=== PATIENT | male | born 1950 | race Caucasian/White ===

== ENCOUNTER 2020-11-17 14:40 | Emergency (ER) | payer MEDICARE, OTHER ==
--- NOTE | 2020-11-17 14:55 | EDM.PDOC ---
ED HPI GENERAL MEDICAL PROBLEM - General Chief Complaint: Possible Sepsis Stated Complaint: MEDICAL [facility]IA [facility] Time Seen by Provider: 11/17/20 14:45 Source of Information: Reports: Patient History Limitations: Reports: Altered Mental Status - History of Present Illness INITIAL COMMENTS - FREE TEXT/NARRATIVE: Kwasi presents today via EMS for severe let groin and hip pain. He is not alert to time, day or place. Recent left hip replacement 09/15/2020 at [facility]. Per EMS patient called for increased and severe left hip/groin pain that started last night. Patient answers yes and no questions, not alert to day, time place or situation. Hypotensive, tachycardic. Patient had zofran 4mg IV, ketamine 30mg IV and normal saline 1500mg IV. Upon presentation to our emergency room, HR 120s, BP 90/60, confused to day, time place. - Related Data Allergies Allergy/AdvReac Type Severity Reaction Status Date / Time No Known Allergies Allergy Verified 11/17/20 14:49 Home Meds: Home Meds Aspirin 81 mg PO DAILY 11/17/20 [History] Calcium Carb/Vit D3/Minerals [Calcium 600+D Plus Minerals] 1 tab PO BID 11/17/20 [History] Cholecalciferol (Vitamin D3) [Vitamin D3] 1 cap PO DAILY 11/17/20 [History] Multivitamin 1 tab PO DAILY 11/17/20 [History] Naproxen 500 mg PO DAILY 11/17/20 [History] Omeprazole 20 mg PO DAILY 11/17/20 [History] atorvaSTATin [Lipitor] 40 mg PO BEDTIME 11/17/20 [History] Past Medical History - Past Surgical History Other Musculoskeletal Surgeries/Procedures:: Left COLT 09/15/2020 [place] ED ROS GENERAL - Review of Systems Review Of Systems: See Below Constitutional: Reports: ROS unobtainable, Other (change in mental status, confusion, not alert, not oriented) Respiratory: Reports: Other (tachypnea) Skin: Reports: Other (Pain to left hip/groin) Neurological: Reports: Confusion, Difficulty Walking, Weakness - Physical Exam Exam: See Below Exam Limited By: Altered Mental Status General Appearance: Anxious, Severe Distress Eye Exam: Bilateral Eye: PERRL Ears: Normal External Exam, Normal Canal, Hearing Grossly Normal, Normal TMs Nose: Normal Inspection, Normal Mucosa, No Blood Throat/Mouth: Normal Inspection, Normal Lips, Normal Gums, Normal Voice, No Airway Compromise Head Exam: Atraumatic, Normocephalic Neck: Normal Inspection, Supple, Full Range of Motion. No: Lymphadenopathy (R), Lymphadenopathy (L) Respiratory/Chest: Lungs Clear, Normal Breath Sounds, No Accessory Muscle Use, Chest Non-Tender, Other (tachypnea) Cardiovascular: No Edema, No Gallop, No Murmur, No Rub, Tachycardia GI/Abdominal: Normal Bowel Sounds, Soft, Non-Tender, No Distention, No Mass. No: Guarding, Rigid, Rebound, Tender (Male) Exam: Normal Inspection, Scrotum Tenderness (L), Testicular Tenderness (L), Other (US completed, no torsion noted, severe pain referred from left hip). No: Rash, Scrotal Swelling, Testicular Mass Neuro Exam (Abbreviated): Confused Extremities: No Pedal Edema, Normal Capillary Refill, Other (decreased ROM to left leg, left hip pain) Psychiatric: Anxious Skin Exam: Dry, Intact, Erythema (significant area of erythema to left hip near healed incision extending to left buttock. Area marked with indelible marker) #1 Interpretation EKG Date: 11/17/20 Time: 16:43 Course - Orders/Labs/Meds Orders: Active Orders 24 hr Category Date Time Status EKG Documentation Completion [RC] ASDIRECTED Care 11/17/20 15:04 Active Abdomen Pelvis w wo Cont [CT] Stat Exams 11/17/20 15:02 Taken Chest 1V Frontal [CR] Stat Exams 11/17/20 15:02 Taken Hip wo Cont Lt [MR] Stat Exams 11/17/20 15:02 Ordered Scrotal Duplex Ltd [US] Stat Exams 11/17/20 16:05 Taken Scrotum and Contents [US] Stat Exams 11/17/20 15:08 Taken CULTURE BLOOD [BC] Stat Lab 11/17/20 15:05 Received CULTURE BLOOD [BC] Stat Lab 11/17/20 15:15 Received CULTURE URINE [RM] Stat Lab 11/17/20 16:27 Received Norepinephrine [Levophed] 4 mg Med 11/17/20 15:00 Active Dextrose 5% in Water 246 ml IV TITRATE Sodium Chloride 0.9% [Normal Saline] 80 ml Med 11/17/20 15:45 Active IV ASDIRECTED Vancomycin 1.5 gm Med 11/17/20 15:20 Active Sodium Chloride 0.9% [Normal Saline] 250 ml IV ONETIME Septic Shock Onset Time [OM.PC] Stat Oth 11/17/20 14:57 Ordered EKG 12 Lead [EK] Routine Ther 11/17/20 15:02 Ordered Medication Orders Norepinephrine Bitartrate 4 mg (/ Dextrose/Water) 250 mls @ 7.5 mls/hr IV TITRATE YANE; Protocol Last Admin: 11/17/20 15:44 Dose: 2 mcg/min, 7.5 mls/hr Documented by: JOHNNY Vancomycin HCl 1.5 gm/ Sodium (Chloride) 250 mls @ 150 mls/hr IV ONETIME ONE Stop: 11/17/20 16:59 Last Admin: 11/17/20 16:13 Dose: 150 mls/hr Documented by: JOHNNY Sodium Chloride (Normal Saline) 80 mls @ 3.5 mls/sec IV ASDIRECTED AYNE Last Admin: 11/17/20 16:27 Dose: 3.2 mls/sec Documented by: JEFF Labs: Laboratory Tests 11/17/20 11/17/20 11/17/20 Range/Units 15:05 15:05 15:05 WBC 16.0 H (4.5-11.0) K/uL RBC 4.49 (4.30-5.90) M/uL Hgb 12.5 (12.0-15.0) g/dL Hct 38.6 L (40.0-54.0) % MCV 86 (80-98) fL MCH 28 (27-31) pg MCHC 32 (32-36) % Plt Count 220 (150-400) K/uL Neut % (Auto) 88.3 H (36-66) % Lymph % (Auto) 1.9 L (24-44) % [place] % (Auto) 9.6 H (2-6) % Eos % (Auto) 0.1 L (2-4) % Baso % (Auto) 0.1 (0-1) % PT (9.5-12.0) sec INR (0.80-1.20) APTT (27.0-36.0) sec Puncture Site ABG pH (7.350-7.450) ABG pCO2 (35.0-42.0) mmHg ABG pO2 (75.0-100.0) mmHg ABG HCO3 (22.0-26.0) mmol/L ABG Total CO2 (23.0-27.0) mmol/L ABG O2 Saturation (95.0-98.0) % ABG O2 Content (15.0-23.0) %vol ABG Base Excess mm/L ABG Hemoglobin (13.5-18.0) g/dL ABG Oxyhemoglobin % ABG Carboxyhemoglobin (0.0-1.6) % ABG Methemoglobin % Korey Test O2 Delivery Device Sodium 143 (140-148) mmol/L Potassium 3.9 (3.6-5.2) mmol/L Chloride 106 (100-108) mmol/L Carbon Dioxide 21 (21-32) mmol/L Anion Gap 16.1 H (5.0-14.0) mmol/L BUN 29 H (7-18) mg/dL Creatinine 1.3 (0.8-1.3) mg/dL Est Cr Clr Drug Dosing TNP Estimated GFR (MDRD) 55 L (>60) Glucose 107 H (74-106) mg/dL Lactic Acid (0.4-2.0) mmol/L Calcium 8.2 L (8.5-10.1) mg/dL Total Bilirubin 0.9 (0.2-1.0) mg/dL AST 19 (15-37) U/L ALT 27 (12-78) U/L Alkaline Phosphatase 97 (46-116) U/L C-Reactive Protein 1.08 H (0.0-0.3) mg/dL Total Protein 5.6 L (6.4-8.2) g/dL Albumin 3.5 (3.4-5.0) g/dL Globulin 2.1 L (2.3-3.5) g/dL Albumin/Globulin Ratio 1.7 (1.2-2.2) Procalcitonin ng/mL Urine Color (YELLOW) Urine Appearance (CLEAR) Urine pH (5.0-8.0) Ur Specific [place] (1.008-1.030) Urine Protein (NEGATIVE) mg/dL Urine Glucose (UA) (NEGATIVE) mg/dL Urine Ketones (NEGATIVE) mg/dL Urine Occult Blood (NEGATIVE) Urine Nitrite (NEGATIVE) Urine Bilirubin (NEGATIVE) Urine Urobilinogen (0.2-1.0) EU/dL Ur Leukocyte Esterase (NEGATIVE) Urine RBC (0-5) Urine WBC (0-5) Ur Epithelial Cells Amorphous Sediment Urine Bacteria Urine Mucus SARS CoV-2 RNA Rapid AYLA 11/17/20 11/17/20 11/17/20 Range/Units 15:05 15:05 15:20 WBC (4.5-11.0) K/uL RBC (4.30-5.90) M/uL Hgb (12.0-15.0) g/dL Hct (40.0-54.0) % MCV (80-98) fL MCH (27-31) pg MCHC (32-36) % Plt Count (150-400) K/uL Neut % (Auto) (36-66) % Lymph % (Auto) (24-44) % [place] % (Auto) (2-6) % Eos % (Auto) (2-4) % Baso % (Auto) (0-1) % PT 11.1 (9.5-12.0) sec INR 1.02 (0.80-1.20) APTT 25.0 L (27.0-36.0) sec Puncture Site Lt radial ABG pH 7.700 H* (7.350-7.450) ABG pCO2 14.8 L* (35.0-42.0) mmHg ABG pO2 77.0 (75.0-100.0) mmHg ABG HCO3 18.8 L (22.0-26.0) mmol/L ABG Total CO2 16.0 L (23.0-27.0) mmol/L ABG O2 Saturation 98.3 H (95.0-98.0) % ABG O2 Content 17.0 (15.0-23.0) %vol ABG Base Excess 0.7 mm/L ABG Hemoglobin 12.6 L (13.5-18.0) g/dL ABG Oxyhemoglobin 95.8 % ABG Carboxyhemoglobin 1.4 (0.0-1.6) % ABG Methemoglobin 1.1 % Korey Test Pass O2 Delivery Device Room air Sodium (140-148) mmol/L Potassium (3.6-5.2) mmol/L Chloride (100-108) mmol/L Carbon Dioxide (21-32) mmol/L Anion Gap (5.0-14.0) mmol/L BUN (7-18) mg/dL Creatinine (0.8-1.3) mg/dL Est Cr Clr Drug Dosing Estimated GFR (MDRD) (>60) Glucose (74-106) mg/dL Lactic Acid (0.4-2.0) mmol/L Calcium (8.5-10.1) mg/dL Total Bilirubin (0.2-1.0) mg/dL AST (15-37) U/L ALT (12-78) U/L Alkaline Phosphatase (46-116) U/L C-Reactive Protein (0.0-0.3) mg/dL Total Protein (6.4-8.2) g/dL Albumin (3.4-5.0) g/dL Globulin (2.3-3.5) g/dL Albumin/Globulin Ratio (1.2-2.2) Procalcitonin 3.28 H* ng/mL Urine Color (YELLOW) Urine Appearance (CLEAR) Urine pH (5.0-8.0) Ur Specific [place] (1.008-1.030) Urine Protein (NEGATIVE) mg/dL Urine Glucose (UA) (NEGATIVE) mg/dL Urine Ketones (NEGATIVE) mg/dL Urine Occult Blood (NEGATIVE) Urine Nitrite (NEGATIVE) Urine Bilirubin (NEGATIVE) Urine Urobilinogen (0.2-1.0) EU/dL Ur Leukocyte Esterase (NEGATIVE) Urine RBC (0-5) Urine WBC (0-5) Ur Epithelial Cells Amorphous Sediment Urine Bacteria Urine Mucus SARS CoV-2 RNA Rapid AYLA 11/17/20 11/17/20 11/17/20 Range/Units 15:30 15:30 15:42 WBC (4.5-11.0) K/uL RBC (4.30-5.90) M/uL Hgb (12.0-15.0) g/dL Hct (40.0-54.0) % MCV (80-98) fL MCH (27-31) pg MCHC (32-36) % Plt Count (150-400) K/uL Neut % (Auto) (36-66) % Lymph % (Auto) (24-44) % [place] % (Auto) (2-6) % Eos % (Auto) (2-4) % Baso % (Auto) (0-1) % PT (9.5-12.0) sec INR (0.80-1.20) APTT (27.0-36.0) sec Puncture Site ABG pH (7.350-7.450) ABG pCO2 (35.0-42.0) mmHg ABG pO2 (75.0-100.0) mmHg ABG HCO3 (22.0-26.0) mmol/L ABG Total CO2 (23.0-27.0) mmol/L ABG O2 Saturation (95.0-98.0) % ABG O2 Content (15.0-23.0) %vol ABG Base Excess mm/L ABG Hemoglobin (13.5-18.0) g/dL ABG Oxyhemoglobin % ABG Carboxyhemoglobin (0.0-1.6) % ABG Methemoglobin % Korey Test O2 Delivery Device Sodium (140-148) mmol/L Potassium (3.6-5.2) mmol/L Chloride (100-108) mmol/L Carbon Dioxide (21-32) mmol/L Anion Gap (5.0-14.0) mmol/L BUN (7-18) mg/dL Creatinine (0.8-1.3) mg/dL Est Cr Clr Drug Dosing Estimated GFR (MDRD) (>60) Glucose (74-106) mg/dL Lactic Acid 4.6 H (0.4-2.0) mmol/L Calcium (8.5-10.1) mg/dL Total Bilirubin (0.2-1.0) mg/dL AST (15-37) U/L ALT (12-78) U/L Alkaline Phosphatase (46-116) U/L C-Reactive Protein (0.0-0.3) mg/dL Total Protein (6.4-8.2) g/dL Albumin (3.4-5.0) g/dL Globulin (2.3-3.5) g/dL Albumin/Globulin Ratio (1.2-2.2) Procalcitonin ng/mL Urine Color Yellow (YELLOW) Urine Appearance Slightly cloudy A (CLEAR) Urine pH >= 9.0 H (5.0-8.0) Ur Specific [place] 1.015 (1.008-1.030) Urine Protein 30 H (NEGATIVE) mg/dL Urine Glucose (UA) Negative (NEGATIVE) mg/dL Urine Ketones Trace H (NEGATIVE) mg/dL Urine Occult Blood Negative (NEGATIVE) Urine Nitrite Negative (NEGATIVE) Urine Bilirubin Negative (NEGATIVE) Urine Urobilinogen 1.0 (0.2-1.0) EU/dL Ur Leukocyte Esterase Negative (NEGATIVE) Urine RBC 0-5 (0-5) Urine WBC 0-5 (0-5) Ur Epithelial Cells Moderate Amorphous Sediment Few Urine Bacteria Not seen Urine Mucus Many SARS CoV-2 RNA Rapid AYLA Negative Procalcitonin 3.28 Lactic acid 4.6 Patient septic, discussed are and transfer to [facility]. Air transport via helicopter due to change in mental status, sepsis, leukocytosis, hypotension, tachycardia, Procalcitonin 3.28, lactic acid 4.6. Case reviewed with Dr. Joyce and patient , they are in agreement with plan. Dr. Mensah [facility] accepts patient for transfer to ICU. CT to be completed and images pushed to [facility]. Meds: Medications Generic Name Dose Route Start Last Admin Trade Name Freq PRN Reason Stop Dose Admin Norepinephrine Bitartrate 4 mg 250 mls @ 7.5 mls/hr 11/17/20 15:00 11/17/20 15:44 / Dextrose/Water IV 2 mcg/min TITRATE YANE 7.5 mls/hr Administration Protocol 2 MCG/MIN Vancomycin HCl 1.5 gm/ Sodium 250 mls @ 150 mls/hr 11/17/20 15:20 11/17/20 16:13 Chloride IV 11/17/20 16:59 150 mls/hr ONETIME ONE Administration Sodium Chloride 80 mls @ 3.5 mls/sec 11/17/20 15:45 11/17/20 16:27 Normal Saline IV 3.2 mls/sec ASDIRECTED YANE Administration Discontinued Medications Generic Name Dose Route Start Last Admin Trade Name Freq PRN Reason Stop Dose Admin Fentanyl 100 mcg 11/17/20 15:00 11/17/20 15:09 Fentanyl 100 Mcg/2 Ml Sdv IVPUSH 11/17/20 15:01 100 mcg ONETIME ONE Administration Piperacillin Sod/Tazobactam 100 mls @ 100 mls/hr 11/17/20 15:20 11/17/20 15:27 Sod 3.375 gm/ Sodium Chloride IV 11/17/20 16:19 100 mls/hr ONETIME ONE Administration Iopamidol 105 ml 11/17/20 15:45 11/17/20 16:26 Iopamidol 612 Mg/Ml 500 Ml Multipack Bottle IV 11/17/20 15:46 105 ml ONETIME ONE Administration Sodium Chloride 10 ml 11/17/20 15:45 11/17/20 16:27 Sodium Chloride 0.9% 10 Ml Syringe FLUSH 11/17/20 15:46 10 ml ONETIME ONE Administration Patient blood pressure came up to 100/60s after 1800 ml normal saline. norepinephrine drip sent with flight crew in case need for pressor. Blood culture x 2, UA and urine culture obtained. Piperacillin and vanco started. - Radiology Interpretation Free Text/Narrative:: Chest x-ray reviewed, wet read with no acute findings. Radiologist read pending. Scrotal US completed showed good blood flow to bilateral testicles. CT of abdomen/pelvis left hip completed. Images will be pushed to [facility]. No read completed prior to transfer. - Re-Assessments/Exams Free Text/Narrative Re-Assessment/Exam: 11/17/20 15:06 Patient had 1500ml normal saline per EMS for hypotension, tachycardia with ketamine 30mg total and zofran 4mg IV. 11/17/20 15:30 US of scrotum completed, no testicular torsion noted. Patient continues to be confused, follows commands. Maintaining airway without assistance. Departure - Departure Time of Disposition: 15:59 Disposition: DC/Tfer to [facility] 02 Condition: Serious Clinical Impression: Sepsis, Altered mental status, Leukocytosis, Hypotension, Tachycardia - Discharge Information *PRESCRIPTION DRUG MONITORING PROGRAM REVIEWED*: No *COPY OF PRESCRIPTION DRUG MONITORING REPORT IN PATIENT TIM: No Referrals: PCP,None [Family Provider] - Forms: ED Department Discharge Additional Instructions: Patient transfer via helicopter [facility]. - My Orders Last 24 Hours: My Active Orders 11/17/20 14:57 Septic Shock Onset Time [OM.PC] Stat 11/17/20 15:00 Norepinephrine [Levophed] 4 mg Dextrose 5% in Water 246 ml IV TITRATE 11/17/20 15:02 Abdomen Pelvis w wo Cont [CT] Stat Chest 1V Frontal [CR] Stat Hip wo Cont Lt [MR] Stat EKG 12 Lead [EK] Routine 11/17/20 15:04 EKG Documentation Completion [RC] ASDIRECTED 11/17/20 15:05 CULTURE BLOOD [BC] Stat 11/17/20 15:08 Scrotum and Contents [US] Stat 11/17/20 15:15 CULTURE BLOOD [BC] Stat 11/17/20 15:20 Vancomycin 1.5 gm Sodium Chloride 0.9% [Normal Saline] 250 ml IV ONETIME 11/17/20 15:45 Sodium Chloride 0.9% [Normal Saline] 80 ml IV ASDIRECTED 11/17/20 16:05 Scrotal Duplex Ltd [US] Stat 11/17/20 16:27 CULTURE URINE [RM] Stat - Assessment/Plan Last 24 Hours: My Active Orders 11/17/20 14:57 Septic Shock Onset Time [OM.PC] Stat 11/17/20 15:00 Norepinephrine [Levophed] 4 mg Dextrose 5% in Water 246 ml IV TITRATE 11/17/20 15:02 Abdomen Pelvis w wo Cont [CT] Stat Chest 1V Frontal [CR] Stat Hip wo Cont Lt [MR] Stat EKG 12 Lead [EK] Routine 11/17/20 15:04 EKG Documentation Completion [RC] ASDIRECTED 11/17/20 15:05 CULTURE BLOOD [BC] Stat 11/17/20 15:08 Scrotum and Contents [US] Stat 11/17/20 15:15 CULTURE BLOOD [BC] Stat 11/17/20 15:20 Vancomycin 1.5 gm Sodium Chloride 0.9% [Normal Saline] 250 ml IV ONETIME 11/17/20 15:45 Sodium Chloride 0.9% [Normal Saline] 80 ml IV ASDIRECTED 11/17/20 16:05 Scrotal Duplex Ltd [US] Stat 11/17/20 16:27 CULTURE URINE [RM] Stat Assessment:: Sepsis, Altered mental status, Leukocytosis, Hypotension, Tachycardia Plan: Patient accepted per Dr. Mensah [facility] for care and admit to ICU. Patient transport via air-helicopter due to change in mental status, sepsis.
[2020-11-17] MEDS ORDERED: Norepinephrine 4 MG in Dextrose 5% in Water 246 ML IV SCH ×2 (15:00)
[2020-11-17] MEDS ORDERED: fentaNYL 100 MCG/2 ML SDV IVPUSH ONE (15:00)
[2020-11-17] MEDS ORDERED: Piperacillin/Tazobactam 3.375 GM in Sodium Chloride 0.9% 100 ML IV ONE (15:20)
[2020-11-17] MEDS ORDERED: Iopamidol 612 MG/ML 500 ML Multipack Bottle IV ONE (15:45)
[2020-11-17] MEDS ORDERED: Sodium Chloride 0.9% 80 ML IV SCH (15:45)
[2020-11-17] MEDS: Sodium Chloride 0.9% 10 ML Syringe FLUSH ONE ×2 (15:50→16:27)
--- NOTE | 2020-11-17 17:03 | CRLCT ---
INDICATION: Sepsis, kidney stone TECHNIQUE: CT abdomen and pelvis acquired without and with IV contrast. Approximately 105 cc of Isovue 300 contrast was administered intravenously. COMPARISON: None FINDINGS: The visualized portions of the lung bases are clear. Minimal atelectasis is seen in the bases. Precontrast images of the kidneys are negative for hydronephrosis or nephrolithiasis. Postcontrast images of the kidneys demonstrate symmetric uptake. There is a probable subcentimeter left renal cyst. The bladder is partially distended and unremarkable. The liver, spleen, pancreas and adrenal glands are unremarkable. The gallbladder is nondistended. The kidneys enhance symmetrically without hydronephrosis. The bladder is partially distended and unremarkable. There are no dilated loops of small bowel to suggest obstruction.The appendix is normal.There is no intraperitoneal free air or fluid. The prostate is enlarged measuring 5.0 x 3.9 cm. There is a small fat containing left inguinal hernia. There is a compression fracture deformity of the L1 vertebral body. The remaining vertebral body heights are maintained and in good alignment. Degenerative disc changes are present at L5-S1. There are postsurgical changes of left hip arthroplasty. There is edema within the musculature overlying the anterior aspect of the left hip and thigh. This includes loss of the normal fat plane between the vastus lateralis, vastus intermedius, vastus medialis and rectus femoris. There is focal loss of the cortex over the anterior femoral neck (series 5, image 122), with the possibility of the prosthesis exposed. IMPRESSION: 1. Marked edema within the musculature at the anterior aspect of the left hip and thigh with loss of the normal intramuscular tissue planes, likely due to infection/inflammation. Inflammation may extend to the left hip arthroplasty, concerning for septic joint. 2. Mild L1 compression fracture deformity is of uncertain chronicity, recommend correlation with pain. Dictated by Cynthia Escalante MD @ 11/17/2020 5:00:33 PM Please note that all CT scans at this facility use dose modulation, iterative reconstruction, and/or weight-based dosing when appropriate to reduce radiation dose to as low as reasonably achievable. Dictated by: Cynthia Escalante MD @ 11/17/2020 17:01:41 (Electronically Signed)
--- NOTE | 2020-11-19 14:43 | US ---
Scrotum and Contents CLINICAL HISTORY: Left testicular pain FINDINGS: Doppler spectra shows normal flow to both testes. The right testicle measures 4.2 x 1.8 x 2.7 cm. The right epididymis has a normal appearance. The left testicle measures 4.1 x 2.1 x 3.3 cm cm. The left epididymis has a normal appearance There are no masses or evidence for varicocele. No abnormal fluid collections are seen. IMPRESSION: Negative testicular ultrasound
--- NOTE | 2020-11-19 14:46 | CR ---
CHEST: Portable 11/17/2020 at 3:44 PM CLINICAL HISTORY:Sepsis COMPARISON:None FINDINGS: The heart size, pulmonary vascularity and hilar structures are normal. No infiltrate effusion or pneumothorax is seen. IMPRESSION: No acute cardiopulmonary process.
== END 2020-11-17 16:30 ==
LOC: JP.ED 14:40
DX: A41.9 Sepsis, unspecified organism (principal); R65.20 Severe sepsis without septic shock; R41.82 Altered mental status, unspecified; D72.829 Elevated white blood cell count, unspecified; I95.9 Hypotension, unspecified; R00.0 Tachycardia, unspecified; Z20.822 Contact with and (suspected) exposure to COVID-19; Z79.82 Long term (current) use of aspirin; Z79.899 Other long term (current) drug therapy
CPT/HCPCS: 36415; 36600; 71045; 74178; 76870; 80053; 81001; 82803; 83605; 84145; 85025; 85610; 85730; 86140; 87040; 87086; 93005; 93976; 96365; 96368; 96375; 99285; J2543; J3010; J3370; J7050; J7060; Q9967; U0002